=== PATIENT | male | born 1985 | race Hispanic/Latino ===

== ENCOUNTER 2017-03-20 09:51 | Day surgery (SDC) | payer SELFPAY ==
[~2017-03-20 09:51] MED LIST: Dexamethasone 20 MG/5 ML VIAL ONE; Glycopyrrolate 0.2 MG/ML 5 ML SYRINGE ONE; Ketorolac Tromethamine 30 MG/ML VIAL ONE; Lidocaine 1% PF 5 ML VIAL ONE; Ondansetron HCl/PF 4 MG/2 ML Vial ONE; PHENYLEPHRINE-NS 100 MCG/ML 10 ML SYRINGE ONE; PROPOFOL 200 MG/20 ML VIAL ONE; Succinylcholine Chloride 20 MG/ML 10 ml SYRINGE FS ONE
[2017-03-20 10:24] LABS: #Eosinphils 0.2 thou/uL (0.0-0.7); #Lymphocytes 2.7 thou/uL (1.20-3.40); #Monocytes 0.6 thou/uL (0.11-0.59); #Neutrophils 6.5 thou/uL (1.40-6.50); %Basophils 0.2 % (0.0-1.0); %Eosinophils 2.4 % (0.0-10.0); %Lymphocytes 26.6 % (21.0-51.0); %Monocytes 5.8 % (0.0-10.0); Mean Corpuscular HGB CONC 34.5 g/dL (32.0-36.0); Mean Corpuscular Hemoglobin 30.6 pg (27.0-31.0); Mean Corpuscular Volume 88.8 fl (80.0-94.0); Mean Platelet Volume 6.7 fL (7.4-10.4); Platelet Count 245 thou/uL (130-400); RBC Distribution Width 11.6 % (11.5-14.5); Red Blood Cell (RBC) Count 5.54 mill/uL (4.70-6.10)
[2017-03-20 10:45] LABS: ALT (SGPT) 22 U/L (8-55); AST (SGOT) 17 U/L (5-34); Albumin 4.4 g/dL (3.5-5.0); Alkaline Phosphatase 63 U/L (40-150); Anion Gap 12 mmol/L (10-20); BUN (Urea Nitrogen) 14 mg/dL (8.9-20.6); Bilirubin, Total 0.8 mg/dL (0.2-1.2); Calc. Creatinine Clearance 0 mL/min (70-130); Carbon Dioxide 24 mmol/L (22-29); Chloride 105 mmol/L (98-107); Estimated GFR-MDRD Greater than 90; Globulin 2.9 g/dL (2.4-3.5); Glucose 89 mg/dL (70-105); Lipase 16 U/L (8-78); Potassium 4.3 mmol/L (3.5-5.1); Protein, Total 7.3 g/dL (6.0-8.3); Sodium 137 mmol/L (136-145)
[2017-03-20] MEDS ORDERED: Ketorolac Tromethamine 30 MG/ML VIAL ONE (11:30)
[2017-03-20] MEDS ORDERED: Morphine 4 MG/ML VIAL ONE (11:30)
--- NOTE | 2017-03-20 12:48 | ULT ---
EXAM: GALLBLADDER ULTRASOUND: HISTORY: Right upper quadrant pain. COMPARISON: None. TECHNIQUE: Utilizing a multihertz transducer, sonographic imaging of the right upper quadrant is performed in th e longitudinal and transverse plane. FINDINGS: The pancreas is obscured by bowel gas. The hepatic parenchyma has a normal echotexture. No hepatic masses or intrahepatic biliary dilatatio n. Contour of the hepatic margin is maintained. Right hepatic lobe measures 18.3 cm. Main portal vein is patent. Appropriate directional flow. Right Kidney: No hydronephrosis. Normal cortical echotexture. 4.3 x 11.6 x 5.4 cm. Within the lumen of the gallbladder, there are multiple echogenic foci with posterior acoustic shadow ing, compatible with gallstones. Gallbladder wall is thickened measuring 0.5 cm. No definite perich olecystic fluid. Usability Strategist does report a positive Ba's sign. Common bile duct diameter is 0.6 cm. Evaluation is somewhat limited by shadowing. IMPRESSION: Sonographic evidence of cholelithiasis with findings that are suggestive of cholecystitis. Consider HIDA scan. POS: [facility]
[2017-03-20] MEDS ORDERED: Bupivacaine/Epinephrine 0.25% 30 ML VIAL ONE (13:33)
--- NOTE | 2017-03-20 13:40 | HP ---
DATE OF ADMISSION: 03/20/2017 HISTORY OF PRESENT ILLNESS: This is a 31-year-old man who presented to the emergency depart ment with complaint of severe epigastric to right upper quadrant abdominal pain. The patient reports intermittent postprandial epigastric to right upper quadrant abdominal pain over the last 2 weeks. He admits occasional nausea, but no emesis. Denies any fevers or chills. Denies any diarrhea. PAST MEDICAL HISTORY: Denies any previous medical problems. PAST SURGICAL HISTORY: He has had no previous surgeries. SOCIAL HISTORY: He is and lives at home with his and two little kids. He is employed i [employer]. He smokes about 10 cigarettes a day and has done so for about 15 years. He admits to occasional intake of ethanol in moderate amounts, but denies any illicit drug abuse. FAMILY HISTORY: Notable for essential hypertension and diabetes mellitus in his mother. He denies a [place] family history of heart disease or cancer. PREHOSPITAL MEDICATIONS: None. ALLERGIES: Patient denies any known drug allergies. REVIEW OF SYSTEMS: Ten point review of systems essentially unremarkable except for as stated in past medical history and chief complaint. PHYSICAL EXAMINATION: GENERAL: This reveals a 31-year-old normally developed man who is otherwise coherent and interactive and appears stated age. The patient is alert and oriented x3, appears to be in no acute distress at the time of my evaluation. VITAL SIGNS: Blood pressure 116/71, heart rate 63, respiratory rate 16, oxygen saturation 96% on alanna m air, temperature 98.4 degrees Fahrenheit. HEENT: Reveals normocephalic and atraumatic. Pupils are equal, round, reactive to light and accommo dation. Extraocular muscles are intact bilaterally. No sclerae icterus is present. HEART: Reveals regular rate and rhythm, no murmurs or gallops auscultated. LUNGS: Clear to auscultation bilaterally. His breathing is regular and unlabored. ABDOMEN: Soft with moderate epigastric to right upper quadrant tenderness to palpation. He has a po sitive Ba sign. Liver and spleen are otherwise nonpalpable below costal margins. EXTREMITIES: Reveals 2+ radial and pedal pulses bilaterally. He has no ankle edema present. NEUROLOGIC: Cranial nerves II through XII grossly intact bilaterally. No focal deficits are present . I have personally reviewed the abdominal ultrasound, which is remarkable for multiple intraluminal ga llstones with gallbladder wall thickening, but no significant pericholecystic fluid present. Common bile duct is slightly dilated for this patient's age at 6 mm. PERTINENT LABORATORY FINDINGS: Includes a CBC with 10,000 white blood cells, hemoglobin 17.0, hemato crit is 49.2, platelet count is 245,000. Metabolic profile: Sodium 137, potassium is 4.3, chloride is 105, bicarbonate 24, BUN is 14, creatinine is 0.81, glucose 89, total bilirubin 0.8, AST and ALT n oted at 17 and 22 respectively. Serum lipase is normal at 16. IMPRESSION: Acute cholecystitis with cholelithiasis. PLAN: 1. Laparoscopic cholecystectomy. 2. I have advised the patient of the above findings and plan. 3. I have also advised the patient of the risks and benefits of the proposed surgery. The risks inc lude, but not limited to bleeding, infection, injury to bile duct or surrounding structures. This information is given to the patient in the presence of his and his nurse at bedside. The patient indicated understanding of information given. I have answered his questions. The patien t has given consent for this admission and surgical intervention.
[2017-03-20] MEDS ORDERED: Fentanyl 100 MCG/2 ML VIAL ONE ×2 (13:42→16:40)
[2017-03-20] MEDS ORDERED: Ondansetron HCl/PF 4 MG/2 ML Vial IVP PRN (17:08)
[2017-03-20] MEDS ORDERED: Promethazine HCl 25 MG/ML VIAL IM/IV PRN (17:08)
[2017-03-20] MEDS ORDERED: HYDROcodone/Acetaminophen 5/325 mg Tablet ONE (17:39)
--- NOTE | 2017-03-20 18:56 | OP ---
DATE OF OPERATION: 03/20/2017 PREOPERATIVE DIAGNOSES: Acute cholecystitis with cholelithiasis. POSTOPERATIVE DIAGNOSES: Acute cholecystitis with cholelithiasis. PROCEDURES PERFORMED: Laparoscopic cholecystectomy. SURGEON: Kristofer Curry D.O. ANESTHESIA: General endotracheal. ESTIMATED BLOOD LOSS: 10 mL FLUIDS GIVEN: 1400 mL crystalloids. SPONGE AND INSTRUMENT COUNT: Certified as correct x2. COMPLICATIONS: None apparent. INDICATIONS FOR PROCEDURE: This is a 31-year-old man, who presented with recurrent epigastr ic to right upper quadrant abdominal pain. Clinical and radiographic examination was consistent with acute cholecystitis with cholelithiasis for which the patient was brought to the operating room for laparoscopic cholecystectomy. Findings are consistent with dilated thick walled gallbladder in the usual anatomic location partiall y encased by omental adhesions. DESCRIPTION OF PROCEDURE: Informed consent obtained from the patient who was brought to the operatin g room and placed in supine position. Following general anesthesia, the abdomen is sterilely prepped and draped in the usual fashion. Skin below the umbilicus was infiltrated with 0.25% Marcaine with epinephrine. A small curvilinear infraumbilical incision is made using an 11 scalpel. Umbilical sta lk was grasped with Duc and elevated. Veress needle was inserted through the incision and placed in the peritoneal cavity through which the abdomen was insufflated with 3 liters of CO2 gas. Intra-a bdominal pressure was noted at 2 mmHg. Following abdominal insufflation, Veress needle was removed a nd a 5 mm trocar was introduced using a Visiport under laparoscopy. Laparoscopy confirmed proper mars cement of the port, no injuries to underlying structures. An additional laparoscopy reveals gallblad silvano in the usual anatomic location partially encased by omental adhesions. Under laparoscopy, a 12-m m epigastric and two 5-mm right lateral subcostal ports were placed after the overlying skin was infi ltrated with 0.25% Marcaine with epinephrine and appropriate incisions made. The patient is placed i n the reverse Trendelenburg position rotated to his left. I introduced the [place] dissector with c autestrada from the epigastric port site using this to take down omental adhesions. The Prestige grasper was introduced through the right lateral subcostal port grasping the fundus of the gallbladder which was elevated cephalad. The gallbladder wall was markedly thickened. A second Prestige grasper was introduced through the right medial subcostal port grasping the Avalos's pouch which was retracted l aterally. Cystic duct was carefully dissected free from surrounding structures at the triangle of Ca lot. This was then divided between clips, applying two clips proximally and one clip at the junction of the cystic duct and gallbladder. The cystic artery was dissected free from surrounding structure s and divided between clips in a similar fashion. Gallbladder itself was removed from the liver bed using cautery with good hemostasis. Gallbladder is delivered out of the abdominal cavity using an En doCatch. Operative site was inspected. There was some minor oozing which egressed several minutes a fter completion of the cholecystectomy. Hemostasis was achieved here using a 1 x 2 inch piece of fib garrison. Finding no other pathology, laparoscopy was terminated. Fascia of the epigastric port site was closed using 0 Vicryl suture and Endo closure device under laparoscopy. Abdomen was desufflated. A ll ports and instruments removed and accounted for. The skin incisions were closed using 4-0 Monocry l suture in subcuticular fashion. Dermabond was applied to all incisions. The patient tolerated the operation without any apparent complication and was returned to the recovery room in satisfactory co ndition.
== END 2017-03-20 18:29 | disposition home or self-care (01) ==
LOC: ERS 09:51 → SDC 13:38
PROVIDERS: ATTEND Surgery
PROC: 0FT44ZZ Resection of Gallbladder, Percutaneous Endoscopic Approach (ICD-10-PCS; principal; 2017-03-20)
DX: K80.12 Calculus of gallbladder with acute and chronic cholecystitis without obstruction (principal); F17.210 Nicotine dependence, cigarettes, uncomplicated
CPT/HCPCS: 36415; 76705; 80053; 83690; 85025; 88304; 96361; 96374; 96375; J1100; J1885; J2001; J2270; J2405; J2704; J3010